=== PATIENT | male | born 1985 | race Caucasian/White ===

== ENCOUNTER 2016-09-19 14:29 | Emergency (ER) | payer BC ==
[2016-09-19 15:14] LABS: Hematocrit 41.4 % (42.0-52.0); Hemoglobin 14.7 gm/dL (13.5-18.0); Mean Cell Volume 84.7 fl (78-100); Mean Corpuscular Hemoglobin 30.1 pg (27-31); Mean Corpuscular Hgb Conc 35.5 g/dl (32-36); Neutrophil % 59.6 % (42-75.0); Platelet Count 231 K/mm3 (150-450); Red Blood Count 4.89 M/mm3 (4.7-6.0); Red Cell Distribution Width 11.9 % (11.5-14.0); White Blood Count 5.1 K/mm3 (4.0-10.5)
[2016-09-19 15:59] LABS: Anion Gap 12.1 mmol/L (6.8-13.8); BUN/Creatinine Ratio 13.2 (9.0-21.6); Bilirubin, Total 0.5 mg/dL (0.0-1.1); Ca. Corrected For Albumin 8.9 mg/dL (8.4-10.2); Calcium * 9.2 mg/dL (7.9-10.9); Carbon Dioxide 29.6 mmol/L (24-32.6); Potassium 3.7 mmol/L (3.4-4.6); Total Protein 7.8 gm/dL (6.2-8.2)
[2016-09-19] MEDS ORDERED: ALBUTEROL SULFATE/IPRATROPIUM 3 ML NEBU IH ONE ×2 (16:12→16:26)
--- NOTE | 2016-09-19 16:20 | ERNOTE ---
Dyspnea - Date Date of Service: 09/19/16 - General Presenting Symptoms: wheezing Time Seen by Provider: 09/19/16 14:54 Source: patient Exam Limitations: no limitations - Immun/Allergies/Home Medications Immunizations: IMMUNIZATION HX Immunizations Up to Date Yes History of Influenza Vaccine Yes Hx Pneumococcal Vaccination No Allergies/Adverse Reactions: Allergies amoxicillin Allergy (Mild, Verified 09/19/16 14:39) Nausea cat dander Allergy (Verified 09/19/16 14:39) grass pollen Allergy (Verified 09/19/16 14:39) horse dander Allergy (Verified 09/19/16 14:39) mold Allergy (Verified 09/19/16 14:39) tree and shrub pollen Allergy (Verified 09/19/16 14:39) weed pollen Allergy (Verified 09/19/16 14:39) Home Medications: HOME MEDICATIONS Albuterol Sulfate [Albuterol Sulfate 2.5 MG/0.5ML] 2.5 mg IH PRN PRN 09/19/16 [ Last Taken Unknown] Albuterol Sulfate [Proair Hfa] 2 puff IH Q4H PRN #1 inhaler 09/19/16 [Last Taken Unknown] predniSONE [Prednisone] 50 mg PO DAILY #5 tablet 09/19/16 [Last Taken Unknown] - History of Present Illness Narrative: Patient presents to the ED for wheezing. He relates he had gotten allergy shots today. He was outside and began to wheeze out of the blue around 2pm. Took albuterol and now it is resolved. No fever. No cough, no recent illnesses. No CP. No pleuritic pain. Nothing made it better or worse. Has nort seen anyone else for this. No calf pain or leg swelling but did have a recent journey from [place]. Severity: mild Treatment ORE PUNCHER: by patient, albuterol Initiating event: Reports: unknown Frequency of episodes: Reports: occassional episodes Modifying Factors - (Improves): Reports: albuterol Modifying Factors (Worsens): Reports: nothing Associated Symptoms-Dyspnea: Denies: fever/chills, chest pain/discomfort, cough , ankle/leg swelling Review of Systems - Review of Systems Constitutional: Absent: fever Respiratory: Absent: cough Cardiology: Absent: chest pain Gastrointestinal/Abdominal: Absent: abdominal pain - Patient's Past Medical History Patient History - Medical: Other Patient History - Cardiac/Respiratory: No pertinent hx Patient History - Cancer: No Hx of Cancer Patient History - Surgical Procedures: No surgical history Patient History - Other: None - Social History Living Situations: home Psych History: No pertinent hx - Immunizations Immunizations Up to Date: Yes Hx Pneumococcal Vaccination: No History of Influenza Vaccine: Yes Physical Exam - Physical Exam General Appearance: Present: alert, no apparent distress, other - No distress, speaking in full sentences. No wheezing at this time. Eye Exam: Normal inspection: bilateral, PERRL: bilateral Ears, Nose, Throat: Present: normal ENT inspection. Absent: pharyngeal erythema , pharyngeal swelling, dry mucous membranes Neck: Present: normal inspection Respiratory: Present: no respiratory distress, normal breath sounds, no accessory muscle use, lungs clear Cardiovascular/Chest: Present: regular rate, rhythm, normal peripheral pulses Gastrointestinal/Abdominal: Present: normal bowel sounds, nontender, soft. Absent: tenderness Back Exam: Present: normal range of motion Extremity Exam: Present: normal inspection. Absent: calf tenderness Neurological Exam: Present: alert, normal mood/affect, no motor/sensory deficits Skin Exam: Absent: skin rash ED Progress - Results and Orders Patient's Lab Results:: I have reviewed the patient's lab results. - Vital Signs Patient's Vital Signs:: I have reviewed the patient's vital signs. Vital Signs: Vital Signs 09/19/16 09/19/16 09/19/16 14:36 14:48 15:11 Temperature 36.9 C Pulse Rate 88 88 87 Respiratory 16 14 Rate Blood Pressure 133/75 128/88 O2 Sat by Pulse 95 96 Oximetry - X-Ray X-Ray #1 X-Ray: chest X-ray Comments: AYUSH, radiology report also reviewed - Progress/Reassessment Chief Complaint: Dyspnea Progress Note-Subjective: 09/19/16 16:16 Patient had not further wheezing. No distress. DuoNeb will be given as his inhaler is old. Nothing to suggest PE, aortic dissection, ACS, anaphylaxis, or other acute life threat. he feels like going home. I discussed warning signs and reasons to return as well as the need for close f/u. Departure Clinical Impression: Wheezing - Departure Disposition: Home self-care Condition: Stable Instructions: Bronchospasm, Adult Additional Instructions: Rest. Steroids. Inhaler. Follow-up tomorrow with your primary doctor for a re -check. Return for trouble breathing, pain or if your condition worsens or changes in any way. Prescriptions: Albuterol Sulfate [Proair Hfa] 2 puff IH Q4H PRN #1 inhaler PRN Reason: Shortness Of Breath predniSONE [Prednisone] 50 mg PO DAILY #5 tablet
[2016-09-19 16:30] VITALS: BP 115/74
--- OUTSIDE RECORDS SUMMARY | 2016-09-19 16:47 | XMS REPORT | Continuity of Care Document ---
:1985 Author Organization [employer] [place] [address] Care Team Providers Name Role Phone Unavailable Primary Care Provider Unavailable Source Comments This disclosure is being made pursuant to the [employer] program and maynot contain all information available regarding this patient.[employer] Active Allergies and Adverse Reactions Not on File Current Medications Be aware that medications may not be up to date as of this document. Alwaysverify current medications with the patient. Not on file Active Problems Not on file Social History Tobacco Use Types Packs/Day Years Used Date Never Assessed Plan of Care Health Maintenance Due Date Last Done Comments Retired-Pertussis Vaccine Adult 07/28/2003 Retired-Tetanus Vaccine Adult 07/28/2003 Retired-INFLUENZA VACCINE 12/06/2014 Results from Last 3 Months Not on file
== END 2016-09-19 16:38 | disposition home or self-care (01) ==
LOC: ER 14:29
DX: R06.2 Wheezing (principal)